=== PATIENT | male | born 1985 | race Caucasian/White ===

== ENCOUNTER 2017-11-27 16:14 | Emergency (ER) | payer MEDICAID ==
[~2017-11-27] VITALS: Ht 180.3 cm; Wt 108.9 kg
[2017-11-27 16:18] VITALS: BP 181/93
--- NOTE | 2017-11-27 16:18 | NUR ---
PT BIBA BLS TO BED 1
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
[2017-11-27] MEDS ORDERED: NACL 0.9% 1,000 ML IV ONE (16:48)
[2017-11-27] MEDS ORDERED: NACL 0.9% 1,000 ML IV SCH (16:48)
--- NOTE | 2017-11-27 16:55 | NUR ---
PT. UNABLE TO PROVIDE URINE SAMPLE AT THIS TIME, PROVIDED URINAL AND A CUP OF WATER. DR. MORILLO NOTIFIED.
--- NOTE | 2017-11-27 16:58 | NUR ---
PT TAKEN TO CT VIA GURNEY BY TECH .
[2017-11-27 17:45] LABS: ANION GAP 14.1 (8-16); CARBON DIOXIDE 27.6 mmol/L (21-32); CHLORIDE 103 mmol/L (98-107); CREATININE 1.2 mg/dL (0.7-1.3); GFR ARICAN-AMERICAN 90 mL/min (>90); GLUCOSE 109 mg/dL (74-106); POTASSIUM 3.7 mmol/L (3.5-5.1); SODIUM SERUM 141 mmol/L (136-145); UREA NITROGEN, BLOOD 15 mg/dL (7-18)
[2017-11-27 17:51] LABS: ALBUMIN 3.9 g/dL (3.4-5.0); ASPARTATE AMINOTRANSFERASE 19 U/L (15-37); TOTAL BILIRUBIN 1.3 mg/dL (0.0-1.0)
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
[2017-11-27 18:06] LABS: BASOPHILS # (AUTO) 0.1 K/uL (0.00-0.22); BASOPHILS % (AUTO) 0.8 % (0.0-2.0); EOSINOPHILS # (AUTO) 0.1 K/uL (0-0.4); EOSINOPHILS % (AUTO) 0.8 % (0.0-4.0); HEMATOCRIT 44.1 % (36-52); LYMPHOCYTES # (AUTO) 1.8 K/uL (2.0-11.5); LYMPHOCYTES % (AUTO) 24.6 % (20.5-51.1); MEAN CORPUSCULAR HEMOGLOBIN 26 pg (27-31); MEAN CORPUSCULAR HGB CONC 34 g/dL (33-37); MEAN CORPUSCULAR VOLUME 77.1 fL (80-94); MONOCYTES # (AUTO) 0.6 K/uL (0.8-1.0); MONOCYTES % (AUTO) 7.8 % (1.7-9.3); NEUTROPHILS # (AUTO) 4.9 K/uL (1.8-7.7); PLATELET COUNT (AUTO) 206 K/uL (140-450); RED BLOOD CELL COUNT(AUTO) 5.72 MIL/uL (4.20-6.10); RED CELL DISTRIBUTION WIDTH 14.4 % (11.6-13.7); WHITE BLOOD COUNT (AUTO) 7.4 K/uL (4.8-10.8)
--- NOTE | 2017-11-27 19:12 | NUR ---
Pt report given to SAYDA RN . Transfer of care at this time.
--- NOTE | 2017-11-27 19:54 | NUR ---
Patient discharged with v/s stable. Written and verbal after care instructions given and explained. Patient alert, oriented and verbalized understanding of instructions. Ambulatory with steady gait. All questions addressed prior to discharge. ID band removed. Patient advised to follow up with PMD. Rx of VOLTAREN AND TRAMADOL given. Patient educated on indication of medication including possible reaction and side effects. Opportunity to ask questions provided and answered. Addendum: 11/27/17 at 1956 by REFUGIO IV removed, catheter intact and site benign. Applied folded 4x4 gauze and tape to stop bleeding.
[2017-11-27 19:55] VITALS: BP 145/102
== END 2017-11-27 19:54 | disposition home or self-care (01) ==
LOC: MED 16:14
DX: S14.109A Unspecified injury at unspecified level of cervical spinal cord, initial encounter (principal); V43.52XA Car driver injured in collision with other type car in traffic accident, initial encounter; Y93.89 Activity, other specified; Y99.8 Other external cause status; Y92.410 Unspecified street and highway as the place of occurrence of the external cause
CPT/HCPCS: 36415; 70450; 71045; 72125; 80053; 82550; 84484; 85025; 99285; G0482